=== PATIENT | male | born 1955 | race American Indian/Alaskan Native ===

== ENCOUNTER 2018-06-14 07:42 | Day surgery (SDC) | payer MEDICARE ==
[2018-06-14] MEDS ORDERED: SUBLIMAZE IV PRN (08:57)
[2018-06-14] MEDS ORDERED: NACL 0.9% 1000 ML 1,000 ML IV SCH (09:00)
--- NOTE | 2018-06-14 09:01 | Anesthesia Consultation ---
Anesthesia Consult and Med Hx Date of service: 06/14/18 - Airway Anesthetic Teeth Evaluation: Poor ROM Head & Neck: Adequate Mental/Hyoid Distance: Adequate Mallampati Class: Class III Intubation Access Assessment: Possibly Difficult - Pulmonary Exam CTA: Yes - Cardiac Exam Cardiac Exam: RRR (grade 3/6 systolic murmur) - Pre-Operative Health Status ASA Pre-Surgery Classification: ASA4 Proposed Anesthetic Plan: MAC - Pulmonary Hx Smoking: Yes (STOPPED AT AGE 26 YRS ) Hx Respiratory Symptoms: No Hx Sleep Apnea: No (VIRAJ PRE SCREEN HIGH RISK) - Cardiovascular System Hx Hypertension: Yes (took antihypertensives yesterday evening) Hx Heart Attack/AMI: No Hx Percutaneous Transluminal Coronary Angioplasty (PTCA): No Hx Cardia Arrhythmia: No Hx Heart Murmur: Yes (follows with cardiology; per patient, has been stable for 3 yrs) - Central Nervous System 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 Reports that his heart was checked at that time and no new pathology or interventions were found. Symptoms now resolved.
--- NOTE | 2018-06-14 09:01 | Anesthesia Day of Surgery ---
Anesthesia Day of Surgery - Day of Surgery Patient Examined: Yes Patient H&P Reviewed: Yes Patient is NPO: Yes
[2018-06-14 09:19] LABS: Basophils % (Auto) 0.3 % (0.0-1.8); Eosinophils # (Auto) 0.9 K/mm3 (0.0-0.4); Eosinophils % (Auto) 12.5 % (0.0-4.3); Hematocrit 32.4 % (35.5-45.6); Hemoglobin 10.9 gm/dl (11.8-15.2); Lymphocytes # (Auto) 0.6 K/mm3 (1.2-5.4); Lymphocytes % (Auto) 8.8 % (13.4-35.0); Mean Corpuscular HGB Conc 34 % (32-34); Mean Corpuscular Volume 95 fl (84-94); Monocytes # (Auto) 0.9 K/mm3 (0.0-0.8); Monocytes % (Auto) 11.8 % (0.0-7.3); Platelet Count 281 K/mm3 (140-440); Red Blood Count 3.41 M/mm3 (3.65-5.03); Red Cell Distribution Width 17.7 % (13.2-15.2)
[2018-06-14] MEDS ORDERED: LOPRESSOR PO SCH (10:00)
[2018-06-14] MEDS ORDERED: DIPRIVAN 10 MG/ML IV ONE (10:10)
[2018-06-14] MEDS ORDERED: XYLOCAINE MPF 2% ONE (10:10)
[2018-06-14] MEDS ORDERED: SUBLIMAZE ONE (10:10)
[2018-06-14] MEDS ORDERED: VERSED IV NR (11:00)
[2018-06-14] MEDS ORDERED: ANCEF/STERILE WATER 2 GM/20 ML 2 GM/20 ML SYRINGE IV ONE (11:33)
[2018-06-14] MEDS ORDERED: ZOFRAN ONE (11:58)
[2018-06-14] MEDS ORDERED: ANCEF/STERILE WATER 2 GM/20 ML IV NR (12:00)
[2018-06-14] MEDS ORDERED: MARCAINE 0.5% INFILTRATI ONE ×2 (12:01→13:10)
[2018-06-14] MEDS ORDERED: DILAUDID ONE (12:31)
--- NOTE | 2018-06-14 13:50 | Procedure Note ---
Date of procedure: 06/14/18 Pre-op diagnosis: 1. left carpal tunnel syndrome 2. Ulnar nerve entrapment Guyon & cubital Post-op diagnosis: same Procedure: Open left carpal tunnel release along with ulnar nerve decompression at the cubital tunnel and Guyon's canal Procedure The patient was brought to the OR and placed on the OR table in the supine position following induction and intubation by anesthesia the patient's left upper extremity was prepped and draped in the usual sterile manner. Timeout procedure was done to identify the patient and the correct operative sites next a sterile tourniquet was applied to the patient's forearm this was followed by exsanguination and inflation of the pneumatic tourniquet to 250 mmHg. A volar incision was made over the hyperthenar eminence this was taken down sharply through skin and subcutaneous tissue the ulnar nerve in Guyon's canal was identified and the surrounding constricting soft tissue structures were released from proximal to distal out to the motor branch care was taken to identify the neurovascular structures during dissection Carrying the incision slightly radially the transverse carpal ligament was seen by using loupe magnification and a #15 blade the structure was released from proximal to distal via median ne rve was seen and had a hourglass type appearance following the release of the carpal and Mulligan canal attention was then turned to the cubital tunnel due to the fact the patient had previous shunts placed in the arm but no tourniquet was used at this location. Leave incision was made over the cubital tunnel again using magnification the constricting soft tissue structures were released distally as well as proximally the elbow was then taken through a range of motion and did not appear to subluxate although visits positioning following this the wounds were copiously irrigated and were closed in a standard routine fashion postoperative dressings were applied the patient tolerated the procedure there were no complications Anesthesia: MICHELLE Surgeon: DANIEL WHITE Documentation Engineer: VANIA VELA Estimated blood loss: 50-100ml Pathology: none Disposition: PACU
[2018-06-14] MEDS ORDERED: APRESOLINE IV ONE (15:00)
--- NOTE | 2018-06-14 16:40 | Post Anesthesia Evaluation ---
- Post Anesthesia Evaluation Patient Participated: Yes Airway Patent: Yes Stable Respiratory Function: Yes Nausea/Vomiting: No Temp > 96.8F: Yes Pain Manageable: Yes Adequeate Hydration: Yes Anesthesia Complications: No
[2018-06-14 17:02] VITALS: BP 156/69
== END 2018-06-14 16:15 | disposition home or self-care (01) ==
LOC: OR 07:42
PROVIDERS: ATTEND Orthopaedic Surgery
DX: G56.02 Carpal tunnel syndrome, left upper limb (principal); G56.22 Lesion of ulnar nerve, left upper limb; N18.6 End stage renal disease; I12.0 Hypertensive chronic kidney disease with stage 5 chronic kidney disease or end stage renal disease; E78.5 Hyperlipidemia, unspecified; H40.9 Unspecified glaucoma; K21.9 Gastro-esophageal reflux disease without esophagitis; F41.9 Anxiety disorder, unspecified; Z79.899 Other long term (current) drug therapy; Z98.49 Cataract extraction status, unspecified eye; Z99.2 Dependence on renal dialysis; Z96.652 Presence of left artificial knee joint; Z86.73 Personal history of transient ischemic attack (TIA), and cerebral infarction without residual deficits; Z86.2 Personal history of diseases of the blood and blood-forming organs and certain disorders involving the immune mechanism
CPT/HCPCS: 36415; 64719; 64721; 80048; 85025; J0360; J0690; J1170; J2250; J2405; J2704; J3010; J7030

== ENCOUNTER 2018-06-16 17:05 | Inpatient (IN) | payer MEDICARE ==
--- NOTE | 2018-06-16 17:36 | Emergency Department Report ---
HPI - General Chief Complaint: Extremity Injury, Upper Time Seen by Provider: 06/16/18 17:15 - HPI HPI: Room 4 The patient is a 62-year-old male presenting with chief complaint of bleeding from left upper extremity surgical site. The patient had a Open left carpal tunnel release along with ulnar nerve decompression at the cubital tunnel and Guyon's canal performed by Dr. Cody 06/14/2018. The patient presented to the ED yesterday for continued bleeding from the surgical site. The patient was admitted to the hospital but left AMA last night. The patient returned to the ED today because he continues to bleed from the left elbow. The patient states he received dialysis yesterday Location: [See above] Duration: [See above] Quality: [See above] Severity: [See above] Modifying factors: [see above] Context: [see above] Mode of transportation: [not driving] ED Past Medical Hx - Past Medical History Previous Medical History?: Yes Hx Hypertension: Yes Hx GERD: Yes Hx Renal Disease: Yes (dialysis) Hx Tuberculosis: Yes (POSITIVE SKIN TEST,TOOK TX , NEG CXR- CHILD) Additional medical history: Left arm fistula - Surgical History Past Surgical History?: Yes - Family History Family history: no significant - Social History Smoking Status: Never Smoker Substance Use Type: Alcohol (location of), Prescribed - Medications Home Medications: Home Medications Medication Instructions Recorded Confirmed Last Taken Type Zolpidem [Ambien] 10 mg PO QHS 06/13/18 06/15/18 06/13/18 22:00 History oxyCODONE /ACETAMINOPHEN [Percocet 1 tab PO Q4HR #20 tab 06/14/18 06/15/18 Unknown Rx 5/325 mg] Acetaminophen [Acetaminophen TAB] 650 mg PO Q4H PRN tablet 06/15/18 Unknown Rx AtorvaSTATin [Lipitor] 40 mg PO DAILY tablet 06/15/18 Unknown Rx Brimonidine Tartrate [Brimonidine 1 drop OU Q8HR 06/15/18 Unknown Rx Tartrate 0.2%] Epoetin Eric 10,000 Unit [Procrit] 10,000 unit IV ARPIT PRN vial 06/15/18 Unknown Rx Ibuprofen [Motrin 600 MG tab] 600 mg PO Q6H PRN tablet 06/15/18 Unknown Rx Latanoprost/Pf [Latanoprost 0.005% 1 drop OU DAILY 06/15/18 Unknown Rx Eye Drop] Valsartan [Diovan] 160 mg PO BID tablet 06/15/18 Unknown Rx amLODIPine [Norvasc] 10 mg PO DAILY 06/15/18 06/15/18 Unknown History amLODIPine [Norvasc] 10 mg PO DAILY tablet 06/15/18 Unknown Rx hydrALAZINE [Apresoline TAB] 25 mg PO BIDWM 06/15/18 06/15/18 Unknown History hydrALAZINE [Apresoline TAB] 25 mg PO BIDWM tablet 06/15/18 Unknown Rx oxyCODONE /ACETAMINOPHEN [Percocet 1 tab PO Q4HR tablet 06/15/18 Unknown Rx 5/325 mg] ED Review of Systems ROS: Stated complaint: BLEEDING Other details as noted in HPI Constitutional: no symptoms reported Eyes: denies: eye pain ENT: denies: throat pain Respiratory: no symptoms reported Cardiovascular: denies: chest pain Endocrine: no symptoms reported Gastrointestinal: denies: abdominal pain Genitourinary: denies: testicular pain Musculoskeletal: denies: back pain Neurological: denies: headache Physical Exam - Physical Exam Vital Signs: Vital Signs 06/16/18 17:12 Temperature 98.1 F Pulse Rate 89 Respiratory 18 Rate O2 Sat by Pulse 98 Oximetry Physical Exam: GENERAL: The patient is well-developed well-nourished male lying on stretcher not appearing to be in acute distress. [] HEENT: Normocephalic. Atraumatic. Extraocular motions are intact. Patient has moist mucous membranes. NECK: Supple. Trachea midline CHEST/LUNGS: There is no respiratory distress noted. HEART/CARDIOVASCULAR: Regular. There is no tachycardia. SKIN: There is slow oozing/bleeding from the left elbow surgical site NEURO: The patient is awake, alert, and oriented. The patient is cooperative. The patient has normal speech MUSCULOSKELETAL: There is no evidence of acute injury. ED Course Vital Signs 06/16/18 17:12 Temperature 98.1 F Pulse Rate 89 Respiratory 18 Rate O2 Sat by Pulse 98 Oximetry - Consultations Consultation #1: 06/16/18 17:34 Picture of patient's blood soaked dressing sent to Dr. Cody. Case discussed with Dr. Cody ED Medical Decision Making - Lab Data Result diagrams: 06/16/18 17:52 06/16/18 17:52 Laboratory Tests 06/16/18 06/16/18 06/16/18 17:52 17:52 17:52 WBC 6.9 RBC 2.68 L Hgb 8.6 L Hct 25.6 L MCV 96 H MCH 32 MCHC 34 RDW 17.0 H Plt Count 241 Lymph % (Auto) 8.3 L Avery % (Auto) 12.7 H Eos % (Auto) 11.9 H Baso % (Auto) 1.0 Lymph # 0.6 L Avery # 0.9 H Eos # 0.8 H Baso # 0.1 Seg Neutrophils % 66.1 Seg Neutrophils # 4.6 PT 14.7 INR 1.08 APTT 43.5 H Sodium 139 Potassium 4.4 Chloride 96.0 L Carbon Dioxide 27 Anion Gap 20 BUN 28 H Creatinine 8.6 H Estimated GFR 8 BUN/Creatinine Ratio 3 Glucose 104 H Calcium 7.2 L Total Bilirubin 0.30 AST 13 Alkaline Phosphatase 75 Total Protein 7.5 Albumin 3.6 L Albumin/Globulin Ratio 0.9 - Differential Diagnosis bleeding Critical care attestation.: If time is entered above; I have spent that time in minutes in the direct care of this critically ill patient, excluding procedure time. ED Disposition Clinical Impression: Post-op bleeding Disposition: OP ADMIT IP TO THIS HOSP Is pt being admited?: Yes Does the pt Need Aspirin: No Condition: Fair Referrals: [place] [Other] - 3-5 Days Time of Disposition: 18:27 (hospitalist notified (Dr Castellanos))
[2018-06-16 18:16] LABS: Basophils # (Auto) 0.1 K/mm3 (0.0-0.1); Eosinophils # (Auto) 0.8 K/mm3 (0.0-0.4); Eosinophils % (Auto) 11.9 % (0.0-4.3); Hematocrit 25.6 % (35.5-45.6); Hemoglobin 8.6 gm/dl (11.8-15.2); Lymphocytes # (Auto) 0.6 K/mm3 (1.2-5.4); Lymphocytes % (Auto) 8.3 % (13.4-35.0); Mean Corpuscular HGB Conc 34 % (32-34); Mean Corpuscular Volume 96 fl (84-94); Monocytes # (Auto) 0.9 K/mm3 (0.0-0.8); Monocytes % (Auto) 12.7 % (0.0-7.3); Platelet Count 241 K/mm3 (140-440); Red Blood Count 2.68 M/mm3 (3.65-5.03)
[2018-06-16 18:20] LABS: INR 1.08 (0.87-1.13)
[2018-06-16 18:21] LABS: Partial Thromboplastin Time 43.5 Sec. (24.2-36.6)
[2018-06-16 18:26] LABS: Albumin 3.6 g/dL (3.9-5); BUN/Creatinine Ratio 3; Blood Urea Nitrogen 28 mg/dL (9-20); Calcium 7.2 mg/dL (8.4-10.2); Hemolysis Index 7
[2018-06-16 18:28] LABS: Alanine Aminotransferase < 5 units/L (7-56)
[2018-06-16] MEDS ORDERED: IBUPROFEN PO PRN (20:21)
[2018-06-16] MEDS ORDERED: TYLENOL PO PRN ×2 (20:21→20:23)
--- NOTE | 2018-06-16 20:21 | History and Physical Report ---
History of Present Illness Date of examination: 06/16/18 Date of admission: 06/16/18 18:45 Chief complaint: Left elbow bleeding History of present illness: -year-old male presenting with chief complaint of bleeding from left upper extremity surgical site. The patient had a Open left carpal tunnel release along with ulnar nerve decompression at the cubital tunnel and Guyon's canal performed by Dr. Cody 06/14/2018. The patient presented to the ED yesterday for continued bleeding from the surgical site. The patient was admitted to the hospital yesterday and was discharged after HD and pressure dressing to L elbow.Dr Cody was consulted. The patient returned to the ED today because he continues to bleed from the left elbow. The patient states he received dialysis yesterday Past Medical History Previous Medical History?: Yes Hypertension: Yes GERD: Yes Renal Disease: Yes (dialysis) Additional medical history: Left arm fistula Surgical History Past Surgical History?: Yes Family History Family history: no significant Social History Smoking Status: Never Smoker Substance Use Type: Alcohol (location of), Prescribed Review of Systems ROS: Stated complaint: BLEEDING Other details as noted in HPI Constitutional: no symptoms reported Eyes: denies: eye pain ENT: denies: throat pain Respiratory: no symptoms reported Cardiovascular: denies: chest pain Endocrine: no symptoms reported Gastrointestinal: denies: abdominal pain Genitourinary: denies: testicular pain Musculoskeletal: denies: back pain Neurological: denies: headache Medications and Allergies Allergies Allergy/AdvReac Type Severity Reaction Status Date / Time No Known Allergies Allergy Verified 06/15/18 09:32 Home Medications Medication Instructions Recorded Confirmed Last Taken Type Zolpidem [Ambien] 10 mg PO QHS 06/13/18 06/15/18 06/13/18 22:00 History oxyCODONE /ACETAMINOPHEN [Percocet 1 tab PO Q4HR #20 tab 06/14/18 06/15/18 Unknown Rx 5/325 mg] Acetaminophen [Acetaminophen TAB] 650 mg PO Q4H PRN tablet 06/15/18 Unknown Rx AtorvaSTATin [Lipitor] 40 mg PO DAILY tablet 06/15/18 Unknown Rx Brimonidine Tartrate [Brimonidine 1 drop OU Q8HR 06/15/18 Unknown Rx Tartrate 0.2%] Epoetin Eric 10,000 Unit [Procrit] 10,000 unit IV ARPIT PRN vial 06/15/18 Unknown Rx Ibuprofen [Motrin 600 MG tab] 600 mg PO Q6H PRN tablet 06/15/18 Unknown Rx Latanoprost/Pf [Latanoprost 0.005% 1 drop OU DAILY 06/15/18 Unknown Rx Eye Drop] Valsartan [Diovan] 160 mg PO BID tablet 06/15/18 Unknown Rx amLODIPine [Norvasc] 10 mg PO DAILY 06/15/18 06/15/18 Unknown History amLODIPine [Norvasc] 10 mg PO DAILY tablet 06/15/18 Unknown Rx hydrALAZINE [Apresoline TAB] 25 mg PO BIDWM 06/15/18 06/15/18 Unknown History hydrALAZINE [Apresoline TAB] 25 mg PO BIDWM tablet 06/15/18 Unknown Rx oxyCODONE /ACETAMINOPHEN [Percocet 1 tab PO Q4HR tablet 06/15/18 Unknown Rx 5/325 mg] Exam - Constitutional Vitals: Temp Pulse Resp BP Pulse Ox 98.2 F 81 20 159/98 100 06/16/18 19:41 06/16/18 19:41 06/16/18 19:41 06/16/18 19:41 06/16/18 19:41 General appearance: Present: no acute distress, well-nourished - EENT Eyes: Present: PERRL ENT: hearing intact, clear oral mucosa - Neck Neck: Present: supple, normal ROM - Respiratory Respiratory effort: normal Respiratory: bilateral: CTA - Cardiovascular Heart rate: 78 Rhythm: regular Heart Sounds: Present: S1 & S2. Absent: rub, click - Extremities Extremities: no ischemia, pulses intact, pulses symmetrical, No edema, abnormal (L elbow continues to bleed) Peripheral Pulses: within normal limits - Abdominal General gastrointestinal: Present: soft, non-tender, non-distended, normal bowel sounds Male genitourinary: Present: normal - Rectal Rectal Exam: deferred - Integumentary Integumentary: Present: clear, warm, dry - Musculoskeletal Musculoskeletal: gait normal, strength equal bilaterally - Psychiatric Psychiatric: appropriate mood/affect, intact judgment & insight - Neurologic Neurologic: CNII-XII intact, moves all extremities - Allied Health Allied health notes reviewed: nursing, case management Results - Labs CBC & Chem 7: 06/17/18 05:35 06/17/18 05:35 Labs: Laboratory Last Values WBC 6.9 K/mm3 (4.5-11.0) 06/16/18 17:52 RBC 2.68 M/mm3 (3.65-5.03) L 06/16/18 17:52 Hgb 8.6 gm/dl (11.8-15.2) L 06/16/18 17:52 Hct 25.6 % (35.5-45.6) L 06/16/18 17:52 MCV 96 fl (84-94) H 06/16/18 17:52 MCH 32 pg (28-32) 06/16/18 17:52 MCHC 34 % (32-34) 06/16/18 17:52 RDW 17.0 % (13.2-15.2) H 06/16/18 17:52 Plt Count 241 K/mm3 (140-440) 06/16/18 17:52 Lymph % (Auto) 8.3 % (13.4-35.0) L 06/16/18 17:52 Chase % (Auto) 12.7 % (0.0-7.3) H 06/16/18 17:52 Eos % (Auto) 11.9 % (0.0-4.3) H 06/16/18 17:52 Baso % (Auto) 1.0 % (0.0-1.8) 06/16/18 17:52 Lymph # 0.6 K/mm3 (1.2-5.4) L 06/16/18 17:52 Chase # 0.9 K/mm3 (0.0-0.8) H 06/16/18 17:52 Eos # 0.8 K/mm3 (0.0-0.4) H 06/16/18 17:52 Baso # 0.1 K/mm3 (0.0-0.1) 06/16/18 17:52 Seg Neutrophils % 66.1 % (40.0-70.0) 06/16/18 17:52 Seg Neutrophils # 4.6 K/mm3 (1.8-7.7) 06/16/18 17:52 PT 14.7 Sec. (12.2-14.9) 06/16/18 17:52 INR 1.08 (0.87-1.13) 06/16/18 17:52 APTT 43.5 Sec. (24.2-36.6) H 06/16/18 17:52 Sodium 139 mmol/L (137-145) 06/16/18 17:52 Potassium 4.4 mmol/L (3.6-5.0) 06/16/18 17:52 Chloride 96.0 mmol/L (98-107) L 06/16/18 17:52 Carbon Dioxide 27 mmol/L (22-30) 06/16/18 17:52 20 mmol/L 06/16/18 17:52 BUN 28 mg/dL (9-20) H 06/16/18 17:52 8.6 mg/dL (0.8-1.5) H 06/16/18 17:52 Estimated GFR 8 ml/min 06/16/18 17:52 3 % 06/16/18 17:52 Glucose 104 mg/dL (75-100) H 06/16/18 17:52 Calcium 7.2 mg/dL (8.4-10.2) L 06/16/18 17:52 0.30 mg/dL (0.1-1.2) 06/16/18 17:52 AST 13 units/L (5-40) 06/16/18 17:52 ALT < 5 units/L (7-56) L 06/16/18 17:52 75 units/L (35-129) 06/16/18 17:52 7.5 g/dL (6.3-8.2) 06/16/18 17:52 3.6 g/dL (3.9-5) L 06/16/18 17:52 0.9 % 06/16/18 17:52 Blood Type O POSITIVE 06/16/18 17:52 Antibody Screen Negative 06/16/18 17:52 Assessment and Plan Advance Directives: Yes (FC) VTE prophylaxis?: Mechanical Plan of care discussed with patient/family: Yes - Patient Problems (1) Post-op bleeding Current Visit: Yes Status: Acute Qualifiers: Laterality: left Plan to address problem: l elbow surgical site Dr Cody informed and texted Pressure dressing in the meantime (2) ESRD needing dialysis Current Visit: No Status: Chronic Plan to address problem: had HD yesterday Dr Cartwright consulted (3) HTN (hypertension) Current Visit: Yes Status: Chronic Qualifiers: Hypertension type: essential hypertension Qualified Code(s): I10 - Essential (primary) hypertension Plan to address problem: Cont antihypertensives (4) Hyperkalemia Current Visit: No Status: Acute Plan to address problem: resolved (5) HLD (hyperlipidemia) Current Visit: Yes Status: Chronic Qualifiers: Hyperlipidemia type: mixed hyperlipidemia Qualified Code(s): E78.2 - Mixed hyperlipidemia Plan to address problem: cont statins (6) DVT prophylaxis Current Visit: Yes Status: Acute Plan to address problem: SCD's only
[2018-06-16] MEDS ORDERED: ZOFRAN IV PRN (20:23)
[2018-06-16] MEDS ORDERED: MORPHINE IV PRN (20:23)
[2018-06-16] MEDS ORDERED: SODIUM CHLORIDE FLUSH SYRINGE 10 ML IV PRN (20:23)
[2018-06-16] MEDS ORDERED: LATANOPROST OU SCH (20:30)
[2018-06-16] MEDS ORDERED: NORVASC ONE (21:03)
[2018-06-16] MEDS ORDERED: APRESOLINE ONE (21:03)
[2018-06-16] MEDS: APRESOLINE PO SCH (21:08)
[2018-06-16] MEDS: NORVASC PO SCH (21:14)
[2018-06-16] MEDS ORDERED: NON-FORMULARY (Brimonidine Tartrate [Brimonidine Tartrate 0.2%] 1 DROP) OU SCH (22:00)
[2018-06-16] MEDS: PEPCID PO SCH (22:20)
[2018-06-16] MEDS: DIOVAN PO SCH (22:20)
[2018-06-16] MEDS: SODIUM CHLORIDE FLUSH SYRINGE 10 ML IV SCH (22:23)
[2018-06-16] MEDS: PERCOCET 5/325 PO PRN (22:54)
[2018-06-16] MEDS: ALPHAGAN P 0.15% OU SCH (23:50)
[2018-06-17] MEDS: ALPHAGAN P 0.15% OU SCH ×3 (05:53→22:16)
[2018-06-17 06:35] LABS: Basophils # (Auto) 0.1 K/mm3 (0.0-0.1); Basophils % (Auto) 1.3 % (0.0-1.8); Eosinophils # (Auto) 0.9 K/mm3 (0.0-0.4); Eosinophils % (Auto) 13.3 % (0.0-4.3); Hematocrit 25.5 % (35.5-45.6); Hemoglobin 8.7 gm/dl (11.8-15.2); Lymphocytes # (Auto) 0.8 K/mm3 (1.2-5.4); Lymphocytes % (Auto) 11.5 % (13.4-35.0); Mean Corpuscular HGB Conc 34 % (32-34); Mean Corpuscular Volume 95 fl (84-94); Monocytes # (Auto) 0.9 K/mm3 (0.0-0.8); Monocytes % (Auto) 13.2 % (0.0-7.3); Platelet Count 234 K/mm3 (140-440); Red Blood Count 2.68 M/mm3 (3.65-5.03); Red Cell Distribution Width 16.5 % (13.2-15.2)
[2018-06-17 06:57] LABS: Calcium 7.3 mg/dL (8.4-10.2)
[2018-06-17] MEDS ORDERED: NACL 0.9% 100 ML IV PRN (09:52)
[2018-06-17] MEDS ORDERED: PROCRIT SUB-Q PRN (09:54)
--- NOTE | 2018-06-17 09:59 | Consultation ---
History of Present Illness - Reason for Consult Consult date: 06/17/18 end stage renal disease Requesting physician: DRU LOVETT - History of Present Illness This is a 62 y/o M with PMH of ESRD on HD, HTN, anemia, and hyperlipidemia who presented to [facility] yesterday with c/o bleeding from left upper extremity surgical site. S/p Open left carpal tunnel release along with ulnar nerve decompression at the cubital tunnel and Guyon's canal by Dr. Cody 06/14/2018 and was discharged home on 06/15/18. Pt admitted for post op bleeding from left upper extremity surgical site. This pt undergoes outpatient dialysis at [facility] every MWF. Last HD treatment was 06/15/18. We were consulted to evaluate this pt who has ESRD. Past History Past Medical History: anemia, dialysis, ESRD, hypertension, hyperlipidemia Past Surgical History: Other Medications and Allergies Allergies Allergy/AdvReac Type Severity Reaction Status Date / Time No Known Allergies Allergy Verified 06/15/18 09:32 Home Medications Medication Instructions Recorded Confirmed Last Taken Type Zolpidem [Ambien] 10 mg PO QHS 06/13/18 06/15/18 06/13/18 22:00 History oxyCODONE /ACETAMINOPHEN [Percocet 1 tab PO Q4HR #20 tab 06/14/18 06/15/18 Unknown Rx 5/325 mg] Acetaminophen [Acetaminophen TAB] 650 mg PO Q4H PRN tablet 06/15/18 Unknown Rx AtorvaSTATin [Lipitor] 40 mg PO DAILY tablet 06/15/18 Unknown Rx Brimonidine Tartrate [Brimonidine 1 drop OU Q8HR 06/15/18 Unknown Rx Tartrate 0.2%] Epoetin Eric 10,000 Unit [Procrit] 10,000 unit IV ARPIT PRN vial 06/15/18 Unknown Rx Ibuprofen [Motrin 600 MG tab] 600 mg PO Q6H PRN tablet 06/15/18 Unknown Rx Latanoprost/Pf [Latanoprost 0.005% 1 drop OU DAILY 06/15/18 Unknown Rx Eye Drop] Valsartan [Diovan] 160 mg PO BID tablet 06/15/18 Unknown Rx amLODIPine [Norvasc] 10 mg PO DAILY 06/15/18 06/15/18 Unknown History amLODIPine [Norvasc] 10 mg PO DAILY tablet 06/15/18 Unknown Rx hydrALAZINE [Apresoline TAB] 25 mg PO BIDWM 06/15/18 06/15/18 Unknown History hydrALAZINE [Apresoline TAB] 25 mg PO BIDWM tablet 06/15/18 Unknown Rx oxyCODONE /ACETAMINOPHEN [Percocet 1 tab PO Q4HR tablet 06/15/18 Unknown Rx 5/325 mg] Active Meds: Active Medications Acetaminophen (Tylenol) 650 mg PO Q4H PRN PRN Reason: Pain MILD(1-3)/Fever >100.5/[place] Amlodipine Besylate (Norvasc) 10 mg PO DAILY [facility] Last Admin: 06/16/18 21:14 Dose: 10 mg Documented by: Atorvastatin Calcium (Lipitor) 40 mg PO DAILY [facility] Brimonidine Tartrate (Alphagan P 0.15%) 1 drops OU Q8HR [facility] Last Admin: 06/17/18 05:53 Dose: 1 drops Documented by: Epoetin Eric (Procrit) 10,000 unit SUB-Q ARPIT PRN PRN Reason: hemodialysis Famotidine (Pepcid) 10 mg PO BID [facility] Last Admin: 06/16/18 22:20 Dose: 10 mg Documented by: Hydralazine HCl (Apresoline) 25 mg PO BID [facility] Last Admin: 06/16/18 21:08 Dose: 25 mg Documented by: Sodium Chloride (Nacl 0.9%) 100 mls @ 999 mls/hr IV ARPIT PRN PRN Reason: Hypotension Ibuprofen (Motrin) 600 mg PO Q6H PRN PRN Reason: Pain, Mild (1-3) Latanoprost (Latanoprost 0.005%) 1 drops OU QPM [facility] Morphine Sulfate (Morphine) 2 mg IV Q4H PRN PRN Reason: Pain, Moderate (4-6) Ondansetron HCl (Zofran) 4 mg IV Q8H PRN PRN Reason: Nausea And Vomiting Oxycodone/Acetaminophen (Percocet 5/325) 1 tab PO Q6H PRN PRN Reason: Pain, Moderate (4-6) Last Admin: 06/16/18 22:54 Dose: 1 tab Documented by: Sodium Chloride (Sodium Chloride Flush Syringe 10 Ml) 10 ml IV BID [facility] Last Admin: 06/16/18 22:23 Dose: 10 ml Documented by: Sodium Chloride (Sodium Chloride Flush Syringe 10 Ml) 10 ml IV PRN PRN PRN Reason: LINE FLUSH Valsartan (Diovan) 160 mg PO BID [facility] Last Admin: 06/16/18 22:20 Dose: 160 mg Documented by: Review of Systems Constitutional: fatigue, no fever Cardiovascular: no chest pain, no shortness of breath Respiratory: no shortness of breath Gastrointestinal: no abdominal pain, no nausea, no vomiting, no hematemesis Musculoskeletal: shooting arm pain Integumentary: other (left arm surgical wound) Neurological: no change in speech, no change in mentation Hematologic/Lymphatic: easy bleeding (post op) Exam - Vital Signs Vital signs: Vital Signs Temp Pulse Resp Pulse Ox 98.1 F 89 18 98 06/16/18 17:12 06/16/18 17:12 06/16/18 17:12 06/16/18 17:12 - General Appearance General appearance: well-developed EENT: ATNC Neck: Present: neck supple Respiratory: Decreased Breath Sounds Heart: regular, S1S2, other (ACCESS: Right AVF + thrill and bruit noted) Gastrointestinal: Present: normoactive bowel sounds. Absent: tenderness Integumentary: warm and dry, other (left arm with dressing in place and zayra wrap dressing noted to left hand/wrist area) Neurologic: alert and oriented x3 Musculoskeletal: Present: other (1+ edema to BLE) Psychiatric: cooperative Results - Lab Results 06/17/18 05:35 06/17/18 05:35 Most recent lab results Calcium 7.3 mg/dL (8.4-10.2) L 06/17/18 05:35 Assessment and Plan ESRD on HD: -No acute indication for HD today -HD tomorrow for UF and clearance via Right AVF -No heparin during HD -Assess need for HD on daily basis -Fluid restriction of 1 liter per day -This pt undergoes outpatient HD at [facility] every MWF -Renal plan d/w Dr Cartwright Post Operative Bleeding to Left upper extremity: -S/p Open left carpal tunnel release along with ulnar nerve decompression at the cubital tunnel and Guyon's canal on 06/14/[address] Cody -Left upper extremity dressing in place -As per primary and Ortho Essential Hypertension -Resume home medications as appropriate -Adjust medications as needed Anemia of ESRD and post op blood loss: -Epogen dosing for anemia management -Transfuse blood as per primary team Hyperlipidemia: - On statin
[2018-06-17] MEDS: PEPCID PO SCH ×2 (10:49→22:15)
[2018-06-17] MEDS: DIOVAN PO SCH ×2 (10:49→22:14)
[2018-06-17] MEDS: APRESOLINE PO SCH ×2 (10:50→22:06)
[2018-06-17] MEDS: NORVASC PO SCH (10:50)
[2018-06-17] MEDS: PERCOCET 5/325 PO PRN (11:06)
--- NOTE | 2018-06-17 11:46 | Progress Note ---
Assessment and Plan Assessment and plan: - Patient Problems (1) Bleeding from surgical wound l elbow surgical site Dr Cody informed and texted Pressure dressing in the meantime (2) ESRD needing dialysis Current Visit: No Status: Chronic Plan to address problem: had HD yesterday Dr Cartwright consulted (3) HTN (hypertension) Current Visit: Yes Status: Chronic Qualifiers: Hypertension type: essential hypertension Qualified Code(s): I10 - Essential (primary) hypertension Plan to address problem: Cont antihypertensives (4) Hyperkalemia Current Visit: No Status: Acute Plan to address problem: resolved (5) HLD (hyperlipidemia) Current Visit: Yes Status: Chronic Qualifiers: Hyperlipidemia type: mixed hyperlipidemia Qualified Code(s): E78.2 - Mixed hyperlipidemia Plan to address problem: cont statins (6) DVT prophylaxis Current Visit: Yes Status: Acute Plan to address problem: SCD's only History Interval history: Patient seen and examined medical records reviewed Admitted with severe bleeding from operative site elbow pressure dressing in place, pending orthopedic evaluation Patient feels better no new complaints Vital signs reviewed Hospitalist Physical - Constitutional Vitals: Temp Pulse Resp BP Pulse Ox 98.4 F 79 20 185/80 98 06/17/18 06:26 06/17/18 10:49 06/17/18 06:26 06/17/18 10:50 06/17/18 06:26 General appearance: Present: no acute distress, well-nourished, obese - EENT Eyes: Present: PERRL, EOM intact - Neck Neck: Present: supple, normal ROM - Respiratory Respiratory effort: normal Respiratory: bilateral: diminished, negative: rales, rhonchi, wheezing - Cardiovascular Rhythm: regular Heart Sounds: Present: S1 & S2 - Extremities Extremities: abnormal (elbow pressure dressing in place) - Abdominal General gastrointestinal: soft, non-tender, non-distended, normal bowel sounds - Integumentary Integumentary: Present: clear, warm - Psychiatric Psychiatric: appropriate mood/affect, cooperative - Neurologic Neurologic: CNII-XII intact, moves all extremities Results - Labs CBC & Chem 7: 06/18/18 05:59 06/18/18 05:59 Labs: Laboratory Last Values WBC 6.8 K/mm3 (4.5-11.0) 06/17/18 05:35 RBC 2.68 M/mm3 (3.65-5.03) L 06/17/18 05:35 Hgb 8.7 gm/dl (11.8-15.2) L 06/17/18 05:35 Hct 25.5 % (35.5-45.6) L 06/17/18 05:35 MCV 95 fl (84-94) H 06/17/18 05:35 MCH 32 pg (28-32) 06/17/18 05:35 MCHC 34 % (32-34) 06/17/18 05:35 RDW 16.5 % (13.2-15.2) H 06/17/18 05:35 Plt Count 234 K/mm3 (140-440) 06/17/18 05:35 Lymph % (Auto) 11.5 % (13.4-35.0) L 06/17/18 05:35 [place] % (Auto) 13.2 % (0.0-7.3) H 06/17/18 05:35 Eos % (Auto) 13.3 % (0.0-4.3) H 06/17/18 05:35 Baso % (Auto) 1.3 % (0.0-1.8) 06/17/18 05:35 Lymph # 0.8 K/mm3 (1.2-5.4) L 06/17/18 05:35 [place] # 0.9 K/mm3 (0.0-0.8) H 06/17/18 05:35 Eos # 0.9 K/mm3 (0.0-0.4) H 06/17/18 05:35 Baso # 0.1 K/mm3 (0.0-0.1) 06/17/18 05:35 Seg Neutrophils % 60.7 % (40.0-70.0) 06/17/18 05:35 Seg Neutrophils # 4.1 K/mm3 (1.8-7.7) 06/17/18 05:35 PT 14.7 Sec. (12.2-14.9) 06/16/18 17:52 INR 1.08 (0.87-1.13) 06/16/18 17:52 APTT 43.5 Sec. (24.2-36.6) H 06/16/18 17:52 Sodium 141 mmol/L (137-145) 06/17/18 05:35 Potassium 4.6 mmol/L (3.6-5.0) 06/17/18 05:35 Chloride 97.3 mmol/L (98-107) L 06/17/18 05:35 Carbon Dioxide 27 mmol/L (22-30) 06/17/18 05:35 21 mmol/L 06/17/18 05:35 BUN 34 mg/dL (9-20) H 06/17/18 05:35 9.4 mg/dL (0.8-1.5) H 06/17/18 05:35 Estimated GFR 7 ml/min 06/17/18 05:35 4 % 06/17/18 05:35 Glucose 114 mg/dL (75-100) H 06/17/18 05:35 POC Glucose 130 (70-105) H 06/16/18 22:04 Calcium 7.3 mg/dL (8.4-10.2) L 06/17/18 05:35 0.30 mg/dL (0.1-1.2) 06/16/18 17:52 AST 13 units/L (5-40) 06/16/18 17:52 ALT < 5 units/L (7-56) L 06/16/18 17:52 75 units/L (35-129) 06/16/18 17:52 7.5 g/dL (6.3-8.2) 06/16/18 17:52 3.6 g/dL (3.9-5) L 06/16/18 17:52 0.9 % 06/16/18 17:52 Blood Type O POSITIVE 06/16/18 17:52 Antibody Screen Negative 06/16/18 17:52 Active Medications - Current Medications Current Medications: Generic Name Dose Route Start Last Admin Trade Name Freq PRN Reason Stop Dose Admin Acetaminophen 650 mg 06/16/18 20:23 Tylenol PO Q4H PRN Pain MILD(1-3)/Fever >100.5/RENO Amlodipine Besylate 10 mg 06/16/18 21:00 06/17/18 10:50 Norvasc PO 10 mg DAILY WINSOME Administration Atorvastatin Calcium 40 mg 06/17/18 10:00 06/17/18 10:49 Lipitor PO 40 mg DAILY WINSOME Administration Brimonidine Tartrate 1 drops 06/16/18 22:00 06/17/18 05:53 Alphagan P 0.15% OU 1 drops Q8HR WINSOME Administration Epoetin Eric 20,000 unit 06/18/18 10:03 Procrit SUB-Q ARPIT PRN hemodialysis Famotidine 10 mg 06/16/18 22:00 06/17/18 10:49 Pepcid PO 10 mg BID WINSOME Administration Hydralazine HCl 25 mg 06/16/18 21:00 06/17/18 10:50 Apresoline PO 25 mg BID WINSOME Administration Sodium Chloride 100 mls @ 999 mls/hr 06/17/18 09:52 Nacl 0.9% IV ARPIT PRN Hypotension Ibuprofen 600 mg 06/16/18 20:21 Motrin PO Q6H PRN Pain, Mild (1-3) Latanoprost 1 drops 06/17/18 18:00 Latanoprost 0.005% OU QPM WINSOME Morphine Sulfate 2 mg 06/16/18 20:23 Morphine IV Q4H PRN Pain, Moderate (4-6) Ondansetron HCl 4 mg 06/16/18 20:23 Zofran IV Q8H PRN Nausea And Vomiting Oxycodone/Acetaminophen 1 tab 06/16/18 20:23 06/17/18 11:06 Percocet 5/325 PO 1 tab Q6H PRN Administration Pain, Moderate (4-6) Sodium Chloride 10 ml 06/16/18 22:00 06/16/18 22:23 Sodium Chloride Flush Syringe 10 Ml IV 10 ml BID WINSOME Administration Sodium Chloride 10 ml 06/16/18 20:23 Sodium Chloride Flush Syringe 10 Ml IV PRN PRN LINE FLUSH Valsartan 160 mg 06/16/18 22:00 06/17/18 10:49 Diovan PO 160 mg BID WINSOME Administration
[2018-06-17] MEDS ORDERED: LATANOPROST 0.005% OU SCH (18:00)
[2018-06-17] MEDS: SODIUM CHLORIDE FLUSH SYRINGE 10 ML IV SCH ×2 (19:42→22:16)
[2018-06-17] MEDS ORDERED: MILK OF MAGNESIA PO PRN (21:21)
[2018-06-18] MEDS: PERCOCET 5/325 PO PRN (02:51)
[2018-06-18] MEDS: ALPHAGAN P 0.15% OU SCH ×2 (06:18→13:43)
[2018-06-18 06:25] LABS: Basophils # (Auto) 0.1 K/mm3 (0.0-0.1); Basophils % (Auto) 1.5 % (0.0-1.8); Eosinophils % (Auto) 14.5 % (0.0-4.3); Hematocrit 25.6 % (35.5-45.6); Hemoglobin 8.8 gm/dl (11.8-15.2); Lymphocytes # (Auto) 0.8 K/mm3 (1.2-5.4); Lymphocytes % (Auto) 12.3 % (13.4-35.0); Mean Corpuscular HGB Conc 34 % (32-34); Mean Corpuscular Volume 95 fl (84-94); Monocytes # (Auto) 0.9 K/mm3 (0.0-0.8); Monocytes % (Auto) 13.1 % (0.0-7.3); Platelet Count 260 K/mm3 (140-440); Red Blood Count 2.71 M/mm3 (3.65-5.03); Red Cell Distribution Width 16.6 % (13.2-15.2)
[2018-06-18] MEDS ORDERED: CATAPRES PO ONE (06:40)
[2018-06-18 06:46] LABS: Calcium 7.2 mg/dL (8.4-10.2)
--- NOTE | 2018-06-18 10:01 | Progress Note ---
Assessment and Plan ESRD on HD: -HD today for UF and clearance via Right AVF -No heparin during HD -Assess need for HD on daily basis -Fluid restriction of 1 liter per day -This pt undergoes outpatient HD at [facility] every MWF Post Operative Bleeding to Left upper extremity: -S/p Open left carpal tunnel release along with ulnar nerve decompression at the cubital tunnel and Guyon's canal on 06/14/[address] Cody -Left upper extremity dressing in place -As per primary and Ortho Essential Hypertension -Resume home medications as appropriate -Adjust medications as needed Anemia of ESRD and post op blood loss: -Epogen dosing for anemia management -Transfuse blood as per primary team Hyperlipidemia: - On statin Subjective Date of service: 06/18/18 Principal diagnosis: ESRD on HD Interval history: seen during HD , tolerating Objective - Vital Signs Vital signs: Vital Signs - 12hr 06/17/18 06/17/18 06/17/18 22:06 22:13 22:14 Temperature 97.7 F Pulse Rate 78 78 Respiratory 18 Rate Blood Pressure 171/99 171/99 171/99 O2 Sat by Pulse Oximetry 06/18/18 06/18/18 06/18/18 02:51 03:51 06:05 Temperature 97.6 F Pulse Rate 77 Respiratory 16 17 20 Rate Blood Pressure 200/100 O2 Sat by Pulse 99 Oximetry 06/18/18 06/18/18 06/18/18 06:44 08:55 09:15 Temperature Pulse Rate 77 69 71 Respiratory Rate Blood Pressure 200/100 178/93 183/89 O2 Sat by Pulse Oximetry 06/18/18 06/18/18 09:30 09:47 Temperature 97.6 F Pulse Rate 66 74 Respiratory 20 Rate Blood Pressure 159/77 190/116 O2 Sat by Pulse Oximetry - General Appearance General appearance: well-developed, well-nourished, appears stated age EENT: ATNC, PERRL, mucous membranes moist Neck: no JVD, no carotid bruit Respiratory: Present: Clear to Ascultation. Absent: Rales, Ronchi Cardiology: regular, S1S2 Gastrointestinal: normoactive bowel sounds, no tenderness, no distended Integumentary: no rash, warm and dry Neurologic: no focal deficit, no asterixis, alert and oriented x3 Musculoskeletal: other (trace pitting edema in BLE) Psychiatric: mood/affect appropriate, cooperative - Lab 06/18/18 05:59 06/18/18 05:59 Most recent lab results Calcium 7.2 mg/dL (8.4-10.2) L 06/18/18 05:59 Medications & Allergies - Medications Allergies/Adverse Reactions: Allergies No Known Allergies Allergy (Verified 06/15/18 09:32) Home Medications: Home Medications Medication Instructions Recorded Confirmed Last Taken Type Zolpidem [Ambien] 10 mg PO QHS 06/13/18 06/18/18 06/15/18 History oxyCODONE /ACETAMINOPHEN [Percocet 1 tab PO Q4HR #20 tab 06/14/18 06/18/18 06/15/18 Rx 5/325 mg] Acetaminophen [Acetaminophen TAB] 650 mg PO Q4H PRN tablet 06/15/18 06/18/18 06/15/18 Rx AtorvaSTATin [Lipitor] 40 mg PO DAILY tablet 06/15/18 06/18/18 06/15/18 Rx Brimonidine Tartrate [Brimonidine 1 drop OU Q8HR 06/15/18 06/18/18 06/15/18 Rx Tartrate 0.2%] Epoetin Eric 10,000 Unit [Procrit] 10,000 unit IV ARPIT PRN vial 06/15/18 06/18/18 06/15/18 Rx Ibuprofen [Motrin 600 MG tab] 600 mg PO Q6H PRN tablet 06/15/18 06/18/18 06/15/18 Rx Latanoprost/Pf [Latanoprost 0.005% 1 drop OU DAILY 06/15/18 06/18/18 06/15/18 Rx Eye Drop] Valsartan [Diovan] 160 mg PO BID tablet 06/15/18 06/18/18 06/15/18 Rx amLODIPine [Norvasc] 10 mg PO DAILY 06/15/18 06/18/18 06/15/18 History amLODIPine [Norvasc] 10 mg PO DAILY tablet 06/15/18 06/18/18 06/15/18 Rx hydrALAZINE [Apresoline TAB] 25 mg PO BIDWM 06/15/18 06/18/18 06/15/18 History hydrALAZINE [Apresoline TAB] 25 mg PO BIDWM tablet 06/15/18 06/18/18 06/15/18 Rx oxyCODONE /ACETAMINOPHEN [Percocet 1 tab PO Q4HR tablet 06/15/18 06/18/18 06/15/18 Rx 5/325 mg] Active Medications: Generic Name Dose Route Start Last Admin Trade Name Freq PRN Reason Stop Dose Admin Acetaminophen 650 mg 06/16/18 20:23 Tylenol PO Q4H PRN Pain MILD(1-3)/Fever >100.5/RENO Amlodipine Besylate 10 mg 06/16/18 21:00 06/17/18 10:50 Norvasc PO 10 mg DAILY WINSOME Administration Atorvastatin Calcium 40 mg 06/17/18 10:00 06/17/18 10:49 Lipitor PO 40 mg DAILY WINSOME Administration Brimonidine Tartrate 1 drops 06/16/18 22:00 06/18/18 06:18 Alphagan P 0.15% OU 1 drops Q8HR WINSOME Administration Epoetin Eric 20,000 unit 06/18/18 10:03 Procrit SUB-Q ARPIT PRN hemodialysis Famotidine 10 mg 06/16/18 22:00 06/17/18 22:15 Pepcid PO 10 mg BID WINSOME Administration Hydralazine HCl 25 mg 06/16/18 21:00 06/17/18 22:06 Apresoline PO 25 mg BID WINSOME Administration Sodium Chloride 100 mls @ 999 mls/hr 06/17/18 09:52 Nacl 0.9% IV ARPIT PRN Hypotension Ibuprofen 600 mg 06/16/18 20:21 Motrin PO Q6H PRN Pain, Mild (1-3) Latanoprost 1 drops 06/17/18 18:00 06/17/18 18:09 Latanoprost 0.005% OU 1 drops QPM WINSOME Administration Magnesium Hydroxide 30 ml 06/17/18 21:21 06/17/18 22:18 Milk Of Magnesia PO 30 ml QDAY PRN Administration Congestion Morphine Sulfate 2 mg 06/16/18 20:23 Morphine IV Q4H PRN Pain, Moderate (4-6) Ondansetron HCl 4 mg 06/16/18 20:23 Zofran IV Q8H PRN Nausea And Vomiting Oxycodone/Acetaminophen 1 tab 06/16/18 20:23 06/18/18 02:51 Percocet 5/325 PO 1 tab Q6H PRN Administration Pain, Moderate (4-6) Sodium Chloride 10 ml 06/16/18 22:00 06/17/18 22:16 Sodium Chloride Flush Syringe 10 Ml IV Not Given BID WINSOME Sodium Chloride 10 ml 06/16/18 20:23 Sodium Chloride Flush Syringe 10 Ml IV PRN PRN LINE FLUSH Valsartan 160 mg 06/16/18 22:00 06/17/18 22:14 Diovan PO 160 mg BID WINSOME Administration
[2018-06-18] MEDS ORDERED: PROCRIT SUB-Q PRN (10:03)
[2018-06-18 12:33] VITALS: BP 180/88
[2018-06-18] MEDS ORDERED: NACL 0.9 (PRIMING MACHINE ONLY DIALYSIS) MC ONE (13:13)
[2018-06-18] MEDS: NORVASC PO SCH (13:14)
[2018-06-18] MEDS: DIOVAN PO SCH (13:14)
[2018-06-18] MEDS: APRESOLINE PO SCH (13:14)
[2018-06-18] MEDS: PEPCID PO SCH (13:14)
[2018-06-18] MEDS: SODIUM CHLORIDE FLUSH SYRINGE 10 ML IV SCH (13:15)
--- NOTE | 2018-06-18 14:52 | Discharge Summary ---
Providers - Providers Date of Admission: 06/16/18 18:45 Date of discharge: 06/18/18 Attending physician: JAMI MCKEON 06/16/18 17:33 Consult to Physician [CONS] Urgent Comment: Dr. Drake spoke with Dr. Cody @ [id number] Consulting Provider: DANIEL CODY Physician Instructions: Reason For Exam: postop bleeding 06/16/18 20:23 Consult to Physician [CONS] Routine Comment: Consulting Provider: ANIA ACOSTA Physician Instructions: Reason For Exam: ESRD 06/16/18 21:11 PICC Line Insertion [Consult to PICC Line RN] [CONS] Routine Reason For Exam: Patient needs a line Type Line:: PICC Hospitalization Reason for admission: Bleeding from surgical wound[Lt Elbow] Condition: Fair Hospital course: 62 year-old male was admitted through ER with complaint of bleeding from left elbow surgical site. The patient had a Open left carpal tunnel release along with ulnar nerve decompression at the cubital tunnel and Guyon's canal performed by Dr. Cody 06/14/2018.The patient was admitted to the hospital and was discharged after HD and pressure dressing to L elbow.Dr Cody was consulted. The patient returned to the ED because he continued to bleed from the left elbow. The patient also has ESRD on dialysis. Managed with pressure dressing , evaluated by orthopedic surgeon, bleeding controlled. Seen by Nephrology and patient received HD per schedule. Today pt is comfortable,no new complaints,vital signs stable Physical exam prior to discharge is unremarkable. Cleared by ortho and renal for discharge and follow up per schedule Disposition: - TO HOME OR SELFCARE Time spent for discharge: 32 min Core Measure Documentation - Palliative Care Palliative Care/ Comfort Measures: Not Applicable - Core Measures Any of the following diagnoses?: none Exam - Constitutional Vitals: Temp Pulse Resp BP Pulse Ox 97.6 F 63 20 180/88 99 06/18/18 12:32 06/18/18 13:14 06/18/18 12:32 06/18/18 13:14 06/18/18 06:05 General appearance: Present: no acute distress, well-nourished - EENT Eyes: Present: PERRL, EOM intact - Neck Neck: Present: supple, normal ROM - Respiratory Respiratory effort: normal Respiratory: bilateral: diminished, negative: rales, rhonchi, wheezing - Cardiovascular Rhythm: regular Heart Sounds: Present: S1 & S2 - Extremities Extremities: no ischemia, No edema - Abdominal General gastrointestinal: Present: soft, non-tender, non-distended, normal bowel sounds - Integumentary Integumentary: Present: clear, warm - Musculoskeletal Musculoskeletal: strength equal bilaterally - Psychiatric Psychiatric: appropriate mood/affect, cooperative - Neurologic Neurologic: CNII-XII intact, moves all extremities Plan Activity: advance as tolerated Diet: renal Additional Instructions: f/u nephrology/HD per schedule MWF Follow up with: MARLENI MONTERO [Other] - 3-5 Days DANIEL CODY MD [Staff Physician] - 7 Days
== END 2018-06-18 16:45 | disposition home or self-care (01) | DRG 919 ==
LOC: ED 17:05 → 3A 18:45
PROVIDERS: ADMIT Internal Medicine; ATTEND Internal Medicine
PROC: 5A1D70Z Performance of Urinary Filtration, Intermittent, Less than 6 Hours Per Day (ICD-10-PCS; principal; 2018-06-18)
DX: L76.22 Postprocedural hemorrhage of skin and subcutaneous tissue following other procedure (principal); N18.6 End stage renal disease; I12.0 Hypertensive chronic kidney disease with stage 5 chronic kidney disease or end stage renal disease; E87.5 Hyperkalemia; K21.9 Gastro-esophageal reflux disease without esophagitis; Z99.2 Dependence on renal dialysis; E78.2 Mixed hyperlipidemia; D63.1 Anemia in chronic kidney disease; Y83.8 Other surgical procedures as the cause of abnormal reaction of the patient, or of later complication, without mention of misadventure at the time of the procedure; Y92.89 Other specified places as the place of occurrence of the external cause
CPT/HCPCS: 36415; 80048; 80053; 80074; 82962; 85025; 85610; 85730; 86850; 86900; 86901; 87116; G0378; A6021; A9270-GY; J0360; J0690; J0885; J1170; J2250; J2405; J2704; J3010; J7030

== ENCOUNTER 2018-07-04 10:05 | Outpatient (CLI) | payer MEDICARE ==
--- NOTE | 2018-07-04 12:34 | XRay Report ---
RIGHT ANKLE, 3 views: History: right ankle pain. There is severe diffuse soft tissue swelling or edema. The bones are mildly demineralized. There has been previous anterior fusion of the distal tibia and talus with metal plate and screws. Please correlate with surgical history. There is a fusion or near fusion at the tibiotalar joint. Chronic healed deformity of the distal fibula is identified. There is no evidence of acute fracture, bony destruction or periostitis. Diffuse vascular calcifications are noted. IMPRESSION: Severe soft tissue swelling or edema. Consider cellulitis. No convincing findings of osteomyelitis. Surgical changes as described. No acute process is identified. Osteopenia. Vascular calcifications suggesting peripheral vascular disease.
--- NOTE | 2018-07-04 12:34 | XRay Report ---
LEFT HIP, 2 views: History: Pain Mild osteopenia. Mild osteoarthritis is noted at the left hip joint. No evidence for fracture, dislocation or bone lesion. No osteonecrosis. The soft tissues are unremarkable. IMPRESSION: Mild osteoarthritis.
== END 2018-07-04 10:06 | disposition home or self-care (01) ==
LOC: XRAY 10:05
PROVIDERS: ATTEND Orthopaedic Surgery
DX: M16.12 Unilateral primary osteoarthritis, left hip (principal); M85.88 Other specified disorders of bone density and structure, other site; M79.89 Other specified soft tissue disorders; E78.5 Hyperlipidemia, unspecified; I12.0 Hypertensive chronic kidney disease with stage 5 chronic kidney disease or end stage renal disease; N18.6 End stage renal disease; K21.9 Gastro-esophageal reflux disease without esophagitis

== ENCOUNTER 2018-07-24 11:14 | Outpatient (CLI) | payer MEDICARE ==
--- NOTE | 2018-07-24 12:14 | XRay Report ---
LUMBOSACRAL SPINE, FIVE VIEWS: HISTORY: Low back pain. Borderline bone mineralization. No evidence for compression deformity, subluxation or bone lesion. Mild degenerative disc disease and facet arthropathy are identified at all levels. The oblique images demonstrate patency of the neural foramen bilaterally. There are moderate symmetric osteoarthritic changes in the SI joints. IMPRESSION: Lumbar spondylosis as described. No acute process.
== END 2018-07-24 11:15 | disposition home or self-care (01) ==
LOC: XRAY 11:14
PROVIDERS: ATTEND Orthopaedic Surgery
DX: M47.817 Spondylosis without myelopathy or radiculopathy, lumbosacral region (principal); I12.0 Hypertensive chronic kidney disease with stage 5 chronic kidney disease or end stage renal disease; N18.6 End stage renal disease; E78.5 Hyperlipidemia, unspecified; K21.9 Gastro-esophageal reflux disease without esophagitis; E66.9 Obesity, unspecified
CPT/HCPCS: 72110